=== PATIENT | male | born 1990 | race Caucasian/White ===

== ENCOUNTER 2016-09-26 01:12 | Inpatient (IN) | payer OTHER ==
--- NOTE | ~2016-09-26 | DS ---
Unit #: [id number] #: [id number] Patient: DORA TAVERA [id number] [facility] [address] [place] [address] [id number] MR#: [id number] NAME: DORA TAVERA ROOM: P212 Age: 25 Sex: M Admission Date: 09/26/2016 : 1990 Discharge Date: 09/27/2016 Attending Physician: Gil Montes M.D. Primary Care Physician: Primary Care Physician No DISCHARGE SUMMARY REASON FOR ADMISSION The patient is a 25-year-old single white male with a history of factitious disorder, admitted with recurrent threats of suicide. HOSPITAL COURSE The patient was admitted to the [address] [place] [address] unit and placed on suicide precautions. He was continued on previously prescribed home medications. He requested discharge on 09/27/2016 and it was so ordered. FINAL DIAGNOSES Factitious disorder with psychological symptoms and morbid obesity. DISPOSITION ON DISCHARGE This physician will prescribe no psychotropic or other medications at the time of discharge, given the patient's diagnosis. FOLLOWUP Followup will take place through the auspices of community mental health resources. PROGNOSIS The patient's prognosis is considered fair. Dictated by... Gil Montes M.D. CB/kwasi TD: 09/27/2016 23:50 JOB #: [id number] DISCHARGE SUMMARY X Gil Montes MD X DISCHARGE SUMMARY
--- NOTE | ~2016-09-26 | HP ---
Unit #: [id number] #: [id number] Patient: DORA TAVERA [id number] [place] [address] [id number] I MR#: [id number] NAME: DORA TAVERA ROOM: P212 Age: 25 Sex: M Admission Date: 09/26/2016 : 1990 Attending Physician: Gil Montes M.D. Admitting Physician: Gil Montes M.D. Primary Care Physician: Primary Care Physician No HISTORY AND PHYSICAL HISTORY OF PRESENT ILLNESS The patient is a 25-year-old male, admitted to [address] [place] [address] on 09/26/2016 for suicidal ideations and homicidal ideations. PAST MEDICAL HISTORY Obesity. PAST SURGICAL HISTORY The patient denies. SOCIAL HISTORY He is unemployed. He lives in a shelter house. He chews tobacco but denies alcohol and drug use. FAMILY MEDICAL HISTORY Noncontributory. ALLERGIES Penicillin and Wellbutrin. CURRENT MEDICATIONS The patient is not on any home medications. REVIEW OF SYSTEMS CONSTITUTIONAL: No fever or chills. HEENT: Denies any sore throat, ear pain or runny nose. CARDIOVASCULAR: Denies chest pain, irregular heart rhythm or palpitations. CHEST: Denies shortness of breath or cough. No hemoptysis. GASTROINTESTINAL: Denies nausea, vomiting, diarrhea or chronic constipation. ENDOCRINE: Denies history of increased thirst or urination. No recent significant weight loss or gain. GENITOURINARY: Denies dysuria, frequency, or hematuria. SKIN: Denies any rashes. HEMATOLOGIC: Denies history of increased bleeding or bruising. MUSCULOSKELETAL: Denies any hot, swollen joints. No generalized muscle pain. NEUROLOGIC: Denies problems with vision or speech. No frequent, severe headaches. No numbness, tingling or weakness in any extremities. Denies loss of bladder or bowel control. PHYSICAL EXAMINATION GENERAL: Awake, alert, oriented, and in no acute distress. Unit #: [id number] #: [id number] Patient: DORA TAVERA VITAL SIGNS: Temperature 98.2, heart rate 81, respirations 18, and blood pressure 127/90. HEIGHT: 5 feet 5 inches. WEIGHT: 372 pounds. SKIN: Warm and dry without rash or lesion. HEENT: Normocephalic. TMs not viewed. Oral and nasal passages clear. Conjunctivae clear. PERRLA. EOMs intact. NECK: Supple without lymphadenopathy or thyromegaly. HEART: Regular rate and rhythm without murmur. LUNGS: Clear. ABDOMEN: Soft, nontender. : Not done. EXTREMITIES: No evidence of cyanosis, clubbing or edema. Moves all without focal deficit. NEUROLOGICAL: Grossly within normal limits. Cranial Nerves: II: Visual joseph are intact. III, IV AND : Extraocular movements are intact. Pupils are equal, round and reactive to light. V: Facial sensation is grossly normal. VII: Facial movements and expression are normal. VIII: Auditory acuity grossly intact. IX, X: Uvula is midline. Phonation is normal. XI: Patient shrugs shoulders and turns head normally. XII: Tongue protrudes in the midline. Sensory and Motor Function: Sensory and motor sensation is grossly normal. Motor: moves all extremities well. Coordination: Gait is normal. Deep Tendon Reflexes: Intact. IMPRESSION 1. Psychiatric admission. 2. Morbid obesity. RECOMMENDATIONS Psychiatric, per psychiatrist. MEDICAL I see no contraindications to participating in facility's activities. MEDICAL PROGNOSIS Good. MEDICAL CONDITION Stable. Dictated by... Thania Talavera TD: 09/27/2016 08:20 JOB #: [id number] Unit #: [id number] #: [id number] Patient: DORA TAVERA HISTORY AND PHYSICAL X BRADEN GATICA APRN HISTORY AND PHYSICAL
--- NOTE | ~2016-09-26 | PA ---
Unit #: [id number] #: [id number] Patient: DORA TAVERA [id number] [facility] [address] [place] [address] [id number] I MR#: [id number] NAME: DORA TAVERA ROOM: P212 Age: 25 Sex: M Admission Date: 09/26/2016 : 1990 Date of Assessment: 09/26/2016 Attending Physician: Gil Montes M.D. Admitting Physician: Gil Montes M.D. Primary Care Physician: Primary Care Physician No PSYCHIATRIC ASSESSMENT IDENTIFYING INFORMATION The patient is a 25-year-old white male admitted to the [address] [place] [address] unit after presenting to this facility claiming to be suicidal. INFORMANT(S) The patient and chart. RELIABILITY Good. CHIEF COMPLAINT None given. Dr. Barriga last evaluation has been reviewed extensively. HISTORY OF PRESENT ILLNESS The patient is 25-year-old white male generally cared for at this facility of Dr. Barriga. Dr. Barriga has diagnosed the patient with factitious disorder with primary psychological symptoms, antisocial personality disorder. The patient returns to this facility claiming to be suicidal. He had gone to [facility] to "to attend to a " and while there reports that he had taken up with a female friend who turned out to be treacherous in her relations with the patient leading his return to the [facility] voicing suicidal ideation and reporting significant alcohol cravings. Dr. Barriga's previous reports indicate that the patient's claims of alcohol abuse are less than optimally believable. Whatever the case the patient is today voicing positive suicidal ideation. He denies any homicidal ideation. Current psychotropic medications include venlafaxine, Cogentin, Geodon, Naltrexone and Thorazine. For more complete history of present illness please refer to previous dictated notes. PAST PSYCHIATRIC HISTORY Reviewed no changes. PAST MEDICAL HISTORY Reviewed no changes. MEDICATIONS Effexor, Cogentin, Geodon, naltrexone, Thorazine. ALLERGIES Penicillin, amoxicillin, Wellbutrin. Unit #: [id number] #: [id number] Patient: DORA TAVERA FAMILY HISTORY Noncontributory. SOCIAL HISTORY Reviewed no changes. MENTAL STATUS EXAMINATION At this time reveals the patient to be a morbidly obese white male appearing her stated age. She is in no apparent physical distress at the time of the examination. He is awake, alert and oriented in all spheres. His mood is mildly dysphoric. His affect is blunted. Speech is generally relevant and coherent. There are no gross deficits in memory or cognition noted. Intelligence is judged to be in the low average range based on fund of knowledge. The patient is generally cooperative throughout the interview. He is currently endorsing positive suicidal ideation. He denies homicidal ideation. He denies any psychotic symptoms. His judgment and insight appear to be reasonably intact. ASSETS AND LIABILITIES ASSETS: The patient's assets to be assessed. LIABILITIES: Characterologic pathology. DIAGNOSTIC IMPRESSION 1. Factitious disorder with primary psychological symptoms. 2. Alcohol use disorder per patient history. 3. Antisocial personality traits. 4. Morbid obesity. PSYCHIATRIC PLAN/TREATMENT GOALS The patient remains hospitalized for safety and stabilization. We will continue previously prescribed medications and I will add Campral for the patient's reported "alcohol craving". Suicidal precautions remain in place. ESTIMATED LENGTH OF STAY Three to four days. Dictated by... Gil Montes M.D. DAPHNE/olga TD: 09/26/2016 21:15 JOB #: [id number] Unit #: [id number] #: [id number] Patient: AYSEDORA ARAUJOE PSYCHIATRIC ASSESSMENT X Gil Montes MD X PSYCHIATRIC ASSESSMENT
[2016-09-26 12:49] LABS: BASOPHIL% 0.6 % (0-2.5); EOSINOPHIL# 0.1 X10e3 (0-0.7); EOSINOPHIL% 1.5 % (0.0-7.0); HEMATOCRIT 42.4 % (38.0-50.0); LYMPHOCYTE# 2.5 X10e3 (1.0-3.5); LYMPHOCYTE% 31.2 % (17.0-45.0); MEAN CELL VOLUME 85.9 FL (83-96); MEAN CORPUSCULAR HEMOGLOBIN 28.4 PG (28-34); MEAN CORPUSCULAR HGB CONC 33.1 g/dL (30-36); MEAN PLATELET VOLUME 9.4 FL (6.5-11.5); MONOCYTE# 0.5 X10e3 (0-1.0); MONOCYTE% 6.5 % (3.0-12.0); NEUTROPHIL# 4.9 X10e3 (1.5-7.1); NEUTROPHIL% 60.2 % (40-75); PLATELET COUNT 193 X10e3 (140-420); RED BLOOD COUNT 4.94 X10e (3.90-5.60); RED CELL DISTRIBUTION WIDTH 14.1 % (11.0-15.5); WHITE BLOOD COUNT 8.1 X10e3 (4.0-10.5)
[2016-09-26 12:55] LABS: DIFF IND NO
[2016-09-26 13:27] LABS: ALBUMIN SERUM 3.7 g/dL (3.5-5.0); ALKALINE PHOSPHATASE 93 U/L (32-92); ALT (SGPT) 29 U/L (10-40); AST (SGOT) 25 U/L (10-42); BILIRUBIN,TOTAL 0.8 mg/dL (0.2-2.0); BLOOD UREA NITROGEN 13 mg/dL (9-23); BUN/CREATININE RATIO 18.57; CALCIUM SERUM 8.7 mg/dL (8.4-10.2); CARBON DIOXIDE 26 mmol/L (22-31); CHLORIDE 102 mmol/L (100-111); CREATININE SERUM 0.7 mg/dL (0.6-1.4); GLOM FILT RATE Estimated ABOVE60 mL/min (>60); GLUCOSE FASTING 114 mg/dL (70-110); POTASSIUM 4.1 mmol/L (3.5-5.1); PROTEIN TOTAL SERUM 6.6 g/dL (6.0-8.3); SODIUM 137 mmol/L (135-145)
[2016-09-26 13:33] LABS: THYROID STIMULATING HORMONE 1.49 uIU/ml (0.34-5.60)
[2016-09-26 13:40] LABS: FREE THYROXIN (T4) 0.92 ng/dL (0.58-1.64)
[2016-09-27 13:10] LABS: URINE APPEARANCE CLEAR; URINE BILIRUBIN NEG (NEG); URINE BLOOD NEG (NEG); URINE COLOR YELLOW; URINE GLUCOSE NEG (NEG); URINE KETONE NEG (NEG); URINE LEUKOCYTE ESTERASE NEG (NEG); URINE NITRATE NEG (NEG); URINE PROTEIN NEG (NEG); URINE SPECIFIC GRAVITY 1.016 (1.003-1.035); URINE UROBILINOGEN 0.2 MG/DL (NEG)
[2016-09-27 13:20] LABS: AMPHETAMINE NEG (NEG); BARBITURATES NEG (NEG); BENZODIAZEPINES NEG (NEG); COCAINE NEG (NEG); MARIJUANA NEG (NEG); OPIATES NEG (NEG); TRICYCLIC ANTIDEPRESSANTS NEG (NEG); U METHADONE NEG (NEG)
== END 2016-09-27 14:40 | DRG 880 ==
LOC: P2S 01:12
PROVIDERS: Specialist
DX: F68.11 Factitious disorder imposed on self, with predominantly psychological signs and symptoms (principal); E66.01 Morbid (severe) obesity due to excess calories; R45.851 Suicidal ideations; F10.10 Alcohol abuse, uncomplicated; F60.2 Antisocial personality disorder; R45.850 Homicidal ideations; E66.9 Obesity, unspecified; Z56.0 Unemployment, unspecified; F17.220 Nicotine dependence, chewing tobacco, uncomplicated
CPT/HCPCS: 80053; 80307; 81003; 84439; 84443; 85025

== ENCOUNTER 2016-11-06 23:58 | Emergency (ER) | payer OTHER ==
--- NOTE | ~2016-11-06 | CR127 ---
[facility] A Service of [facility] & [facility] RADIOLOGY TEXT RESULTS PATIENT: DORA TAVERA LOCATION: [facility] : 90 UNIT #: [id number] AGE: [address]: Helene Downey APRN SEX: M ORDER DR: [id number] [facility] [address] [facility]. [place], [place] [address] [id number] MR#: [id number] Acc #: [id number] NAME: DORA TAVERA : 1990 SEX: M STUDY DATE/TIME: 11/07/2016 00:01 UNIT: TX ROOM: STUDY DESCRIPTION: CR Foot Complete Min 3 View Rt Attending Physician: Helene Downey A.P.R.N. Ordering Physician: Helene Downey A.P.R.N. Primary Care Physician: No Primary Care Physician MEDICAL IMAGING REPORT This report is preliminary unless electronic signature is present EXAM Right foot 11/07 at 0001 hours INDICATIONS Foot and ankle pain after twisting injury while walking today. FINDINGS The tarsal, metatarsal, and phalangeal elements are all anatomically normal in position and alignment. There are no articular defects. No fractures or radiopaque foreign bodies in the soft tissues are apparent. IMPRESSION Normal foot. Dictated by... Jacek Morales Jr., M.D. THIS IS AN ELECTRONICALLY VERIFIED REPORT Jacek Morales Jr., M.D. at 11/07/2016 5:24 AM SHAYY/carter TD: 11/07/2016 04:41 JOB #: [id number] MEDICAL IMAGING REPORT Page 1 of 1 COPY
--- NOTE | ~2016-11-06 | CR21 ---
[facility] A Service of [facility] RADIOLOGY TEXT RESULTS PATIENT: DORA TAVERA LOCATION: [facility] : 90 UNIT #: [id number] AGE: [address]: Helene Downey APRN SEX: M ORDER DR: [id number] [facility] [address] [facility]. [place], [place] [address] [id number] MR#: [id number] Acc #: [id number] NAME: DORA TAVERA : 1990 SEX: M STUDY DATE/TIME: 11/07/2016 00:01 UNIT: CFTX ROOM: STUDY DESCRIPTION: CR Ankle Min 3 Views Rt Attending Physician: Helene Downey A.P.R.N. Ordering Physician: Helene Downey A.P.R.N. Primary Care Physician: No Primary Care Physician MEDICAL IMAGING REPORT This report is preliminary unless electronic signature is present EXAM Right ankle 11/07 at 0001 hours INDICATIONS Ankle pain after twisting injury while walking today. FINDINGS AP, lateral, and oblique projections of the ankle show satisfactory integrity of the joint mortise with a smooth articular surface. There is no identifiable fracture, dislocation, or radiopaque foreign body. IMPRESSION Normal ankle. Dictated by... Jacek Morales Jr., M.D. THIS IS AN ELECTRONICALLY VERIFIED REPORT Jacek Morales Jr., M.D. at 11/07/2016 5:24 AM SHAYY/carter TD: 11/07/2016 04:37 JOB #: [id number] MEDICAL IMAGING REPORT Page 1 of 1 COPY
== END 2016-11-07 00:50 | disposition home or self-care (01) ==
LOC: CFTX 23:58
DX: Z88.0 Allergy status to penicillin (principal); S93.401A Sprain of unspecified ligament of right ankle, initial encounter; X58.XXXA Exposure to other specified factors, initial encounter; Y92.69 Other specified industrial and construction area as the place of occurrence of the external cause
CPT/HCPCS: 29515; 73610; 73630; 96372; 99283; J1885

== ENCOUNTER 2017-02-11 02:00 | Inpatient (IN) | payer OTHER ==
[~2017-02-11] VITALS: Ht 165 cm; Wt 168.7 kg
--- NOTE | ~2017-02-11 | DS ---
Unit #: [id number] #: [id number] Patient: BENJI TAVERA [id number] [place] [address] [id number] I MR#: [id number] NAME: BENJI TAVERA ROOM: P208 Age: 26 Sex: M Admission Date: 02/11/2017 : 1990 Discharge Date: 02/13/2017 Attending Physician: Sacha Barriga M.D. 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 He was admitted for stabilization. DIAGNOSTIC STUDIES LABORATORY RESULTS: Please see hospital chart. HOSPITAL COURSE Benji was admitted and placed on suicide precautions. Effexor was changed to Prozac 20 mg daily for depression with Remeron 30 mg at bedtime for depression continued and ReVia 50 mg at bedtime for alcohol dependence. Sukhwinder participated appropriately in unit groups and activities, but due to a chaotic milieu on [address] [place] [address], he was transferred to [address] [place] [address] for further access to chemical dependence groups, which was effective. The patient's depression resolved and he showed no signs of psychosis throughout the hospitalization. He was discharged in stable condition. DISCHARGE DIAGNOSES AXIS I: Major depressive disorder. AXIS II: Antisocial personality disorder. AXIS III: Morbid obesity. AXIS IV: AXIS V: DISCHARGE INSTRUCTIONS [facility] DISCHARGE MEDICATIONS Prozac 20 mg daily for depression, Remeron 30 mg at bedtime for depression, and ReVia 50 mg daily for alcohol dependence. CONDITION AT DISCHARGE Improved. PROGNOSIS Fair. DIET AND ACTIVITY Unit #: [id number] #: [id number] Patient: BENJI TAVERA Per primary care doctor. Dictated by... Sacha Barriga M.D. MRH/modl TD: 02/13/2017 23:53 JOB #: [id number] DISCHARGE SUMMARY Page 1 of 1 X Sacha Barriga MD DISCHARGE SUMMARY
--- NOTE | ~2017-02-11 | PA ---
Unit #: [id number] #: [id number] Patient: BENJI TAVERA [id number] [place] [address] [id number] I MR#: [id number] NAME: BENJI TAVERA ROOM: P208 Age: 26 Sex: M Admission Date: 02/11/2017 : 1990 Date of Assessment: Attending Physician: Sacha Barriga M.D. Admitting Physician: Sacha Barriga M.D. Primary Care Physician: Primary Care Physician No PSYCHIATRIC ASSESSMENT DATE OF ASSESSMENT 02/11/2017. INFORMANTS The patient reliable; OLOP, reliable. CHIEF COMPLAINT Suicidal ideation. HISTORY OF PRESENT ILLNESS Benji Tavera is a 26-year-old man with multiple admissions to our facility, who reports that he was overwhelmed on his temporary job and had increasing hopelessness, helplessness, and vague auditory hallucinations telling him to kill himself. 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 He had been erratically compliant with previous psychiatric medications. He was admitted for stabilization. PAST PSYCHIATRIC HISTORY Multiple admissions to our facility for mood disorder and erratic compliance with outpatient care. FAMILY PSYCHIATRIC HISTORY None reported. 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 He has been staying at a pen[facility] with friends. PAST MEDICAL HISTORY Morbid obesity. MEDICATIONS None currently. ALLERGIES Amoxicillin and penicillin. SUBSTANCE USE HISTORY None reported. MENTAL STATUS EXAMINATION Benji presented as a mildly disheveled man who appeared his stated age. Unit #: [id number] #: [id number] Patient: BENJI TAVERA He was cooperative with the examination. His speech was spontaneous and easily understood. Musculoskeletal examination was calm. His mood was depressed and irritable with a congruent affect. He was alert and fully oriented. Memory and concentration were fair. Thought processes were goal directed with no psychosis. He did report auditory hallucinations prior to admission, but denied these now. He reported ongoing suicidal ideation with a plan to cut himself and could not contract for safety. Insight and judgment, fair. Fund of knowledge and abstraction, fair. ASSETS AND LIABILITIES The patient is employed and is voluntary for treatment. Liabilities include erratic compliance and poor coping skills. ADMITTING DIAGNOSES AXIS I: Major depression. AXIS II: Antisocial personality disorder. AXIS III: Morbid obesity. AXIS IV: AXIS V: PSYCHIATRIC PLAN The patient was admitted and placed on suicide precautions. We will discontinue Effexor due to lack of benefit and add Prozac 20 mg daily, continuing Remeron 30 mg at bedtime, and ReVia 50 mg at bedtime. The patient will enroll in psychotherapy groups and activities, and physical examination and laboratory studies will be ordered and reviewed. TREATMENT GOALS Resolution of SI, improvement in insight, and improvement in coping skills. DISCHARGE PLANNING Follow up with [facility]. ESTIMATED LENGTH OF STAY 5 days. Dictated by... Sacha Barriga M.D. LUPE/kwasi TD: 02/12/2017 04:50 JOB #: [id number] PSYCHIATRIC ASSESSMENT Page 1 of 1 X Sacha Barriga MD X PSYCHIATRIC ASSESSMENT
--- NOTE | ~2017-02-11 | HP ---
Unit #: [id number] #: [id number] Patient: BENJI TAVERA [id number] [place] [address] [id number] I MR#: [id number] NAME: BENJI TAVERA ROOM: P116 Age: 26 Sex: M Admission Date: 02/11/2017 : 1990 Attending Physician: Sacha Barriga M.D. Admitting Physician: Sacha Barriga M.D. Primary Care Physician: Primary Care Physician No HISTORY AND PHYSICAL HISTORY OF PRESENT ILLNESS Benji is a 26 year old admitted to [address] [place] [address] with depression and verbalizing wanting to hurt himself. He has had numerous admissions to this facility. PAST MEDICAL HISTORY Morbid obesity. PAST SURGICAL HISTORY Nothing reported. ALLERGIES Penicillin. SOCIAL HISTORY He denies cigarettes, alcohol and illicit drug use. FAMILY HISTORY Medically noncontributory. REVIEW OF SYSTEMS CONSTITUTIONAL: No fever or chills. HEENT: Denies any sore throat, ear pain or runny nose. CARDIOVASCULAR: Denies chest pain, irregular heart rhythm or palpitations. CHEST: Denies shortness of breath or cough. No hemoptysis. GASTROINTESTINAL: Denies nausea, vomiting, diarrhea or chronic constipation. ENDOCRINE: Denies history of increased thirst or urination. No recent significant weight loss or gain. GENITOURINARY: Denies dysuria, frequency, or hematuria. SKIN: Denies any rashes. HEMATOLOGIC: Denies history of increased bleeding or bruising. MUSCULOSKELETAL: Denies any hot, swollen joints. No generalized muscle pain. NEUROLOGIC: Denies problems with vision or speech. No frequent, severe headaches. No numbness, tingling or weakness in any extremities. Denies loss of bladder or bowel control. CURRENT MEDICATIONS 1. Prozac 20 mg daily. 2. ReVia 50 mg q.h.s. 3. Remeron 30 mg q.h.s. 4. Nicotine patch 21 mg daily. Unit #: [id number] #: [id number] Patient: BENJI TAVERA 5. Milk of Magnesia p.r.n. 6. Maalox p.r.n. 7. Tylenol p.r.n. PHYSICAL EXAMINATION GENERAL: Alert, morbidly obese, in no apparent distress. VITAL SIGNS: Blood pressure 120/82, heart rate 80, respirations 16, temperature 98.6. WEIGHT: 372. HEIGHT: 5 feet 5 inches. SKIN: Warm and dry without rash or lesion. HEENT: Normocephalic. TMs not viewed. Oral and nasal passages clear. Conjunctivae clear. PERRLA. EOMs intact. NECK: Supple without lymphadenopathy or thyromegaly. HEART: Regular rate and rhythm without murmur. LUNGS: Clear. ABDOMEN: Soft, nontender. : Not done. EXTREMITIES: No evidence of cyanosis, clubbing or edema. Moves all without focal deficit. NEUROLOGICAL: Grossly within normal limits. Cranial Nerves: II: Visual joseph are intact. III, IV AND : Extraocular movements are intact. Pupils are equal, round and reactive to light. V: Facial sensation is grossly normal. VII: Facial movements and expression are normal. VIII: Auditory acuity grossly intact. IX, X: Uvula is midline. Phonation is normal. XI: Patient shrugs shoulders and turns head normally. XII: Tongue protrudes in the midline. Sensory and Motor Function: Sensory and motor sensation is grossly normal. Motor: moves all extremities well. Coordination: Gait is normal. Deep Tendon Reflexes: Intact. IMPRESSION Psychiatric admission. RECOMMENDATIONS PSYCHIATRIC: Per psychiatrist. MEDICAL: See no contraindication to participate in facility's activities. MEDICAL PROGNOSIS Good. MEDICAL CONDITION Stable. Dictated by... Helene Montoya P.A.-C. for Varun Wilks/shayy TD: 02/11/2017 23:17 JOB #: [id number] Unit #: [id number] #: [id number] Patient: BENJI TAVERA HISTORY AND PHYSICAL Page 1 of 1 X Helene Montoya HISTORY AND PHYSICAL
[2017-02-11 10:30] LABS: BASOPHIL% 0.4 % (0-2.5); EOSINOPHIL# 0.1 X10e3 (0-0.7); EOSINOPHIL% 1.4 % (0.0-7.0); HEMATOCRIT 44.9 % (38.0-50.0); HEMOGLOBIN 14.8 gm/dL (13.0-16.0); LYMPHOCYTE# 2.5 X10e3 (1.0-3.5); LYMPHOCYTE% 25.3 % (17.0-45.0); MEAN CELL VOLUME 87.1 FL (83-96); MEAN CORPUSCULAR HEMOGLOBIN 28.7 PG (28-34); MEAN PLATELET VOLUME 9.2 FL (6.5-11.5); MONOCYTE# 0.7 X10e3 (0-1.0); MONOCYTE% 6.6 % (3.0-12.0); NEUTROPHIL# 6.6 X10e3 (1.5-7.1); NEUTROPHIL% 66.3 % (40-75); PLATELET COUNT 206 X10e3 (140-420); RED BLOOD COUNT 5.16 X10e (3.90-5.60); RED CELL DISTRIBUTION WIDTH 13.5 % (11.0-15.5); WHITE BLOOD COUNT 9.9 X10e3 (4.0-10.5)
[2017-02-11 10:34] LABS: ALBUMIN SERUM 3.5 g/dL (3.5-5.0); BILIRUBIN,TOTAL 0.7 mg/dL (0.2-2.0); BUN/CREATININE RATIO 18.75; CALCIUM SERUM 8.7 mg/dL (8.4-10.2); CREATININE SERUM 0.8 mg/dL (0.6-1.4); GLOM FILT RATE Estimated 123.3 mL/min (>60); POTASSIUM 4.3 mmol/L (3.5-5.1); PROTEIN TOTAL SERUM 6.1 g/dL (6.0-8.3)
[2017-02-11 10:39] LABS: DIFF IND NO
== END 2017-02-13 11:30 | disposition home or self-care (01) | DRG 881 ==
LOC: P1S 04:09 → P2S 02-12 12:24
PROVIDERS: Psychiatry & Neurology Psychiatry
DX: F32.9 Major depressive disorder, single episode, unspecified (principal); Z68.44 Body mass index [BMI] 60.0-69.9, adult; E66.01 Morbid (severe) obesity due to excess calories; F60.2 Antisocial personality disorder; Z88.0 Allergy status to penicillin
CPT/HCPCS: 80053; 85025

== ENCOUNTER 2017-02-16 14:16 | Inpatient (IN) | payer OTHER ==
[~2017-02-16] VITALS: Ht 165.1 cm; Wt 165.1 kg
--- NOTE | ~2017-02-16 | HP ---
Unit #: [id number] #: [id number] Patient: BENJI TAVERA [id number] [place] [address] [id number] I MR#: [id number] NAME: BENJI TAVERA ROOM: P113 Age: 26 Sex: M Admission Date: 02/16/2017 : 1990 Attending Physician: Sacha Barriga M.D. Admitting Physician: Sacha Barriga M.D. Primary Care Physician: Primary Care Physician No HISTORY AND PHYSICAL Benji is a 26-year-old male admitted on 02/16/[address] [place] [address] for depression and suicidal ideation. He was recently admitted for the same on 02/11/2017. Reviewed the history and physical from that admission and there are no changes. Dictated by... Thania Heredia/shayy TD: 02/17/2017 23:07 JOB #: [id number] HISTORY AND PHYSICAL Page 1 of 1 X WING FONTENOT APRN HISTORY AND PHYSICAL
--- NOTE | ~2017-02-16 | PA ---
Unit #: [id number] #: [id number] Patient: BENJI TAVERA [id number] [facility] [address] [place] [address] [id number] MR#: [id number] NAME: BENJI TAVERA ROOM: P113 Age: 26 Sex: M Admission Date: 02/16/2017 : 1990 Date of Assessment: 02/17/2017 Attending Physician: Sacha Barriga M.D. Admitting Physician: Sacha Barriga M.D. Primary Care Physician: Primary Care Physician No PSYCHIATRIC ASSESSMENT INFORMANTS Patient reliable; OLOP, reliable. CHIEF COMPLAINT "my medicines are not working". HISTORY OF PRESENT ILLNESS Benji is a 26-year-old man, who recently discharged from this facility and with a history of multiple admissions for depression. He also has a history of alcohol abuse, but no dependence. He reported increasing dysphoria and hopelessness with suicidal ideation. He was unwilling to contract for safety and was admitted for stabilization. PAST PSYCHIATRIC HISTORY As noted, the patient was just discharged from this facility about 4 or 5 days ago on Prozac, Remeron, and ReVia. He reported compliance with these medications. FAMILY PSYCHIATRIC HISTORY Please see previous assessments. SOCIAL HISTORY The patient is temporarily homeless and is living in a chcf house in the [place] area. He has a history of traveling between [place] and [place] and history of episodic homelessness. He is single with no children and minimal psychosocial support. PAST MEDICAL HISTORY Significant for obesity. MEDICATIONS Please see MAR. ALLERGIES No known medication allergies. SUBSTANCE USE HISTORY As noted, the patient has a history of alcohol abuse, but no dependence. MENTAL STATUS EXAMINATION Benji presented as an obese man, who appeared his stated age. He was generally cooperative with the examination. His speech was spontaneous and easily understood. His musculoskeletal examination was calm. His Unit #: [id number] #: [id number] Patient: BENJI TAVERA mood was depressed with a decreased range of affect. He was alert and fully oriented. His memory and concentration were intact. His thought processes were logical with no active psychosis. He reported suicidal ideation with multiple plans and would not contract for safety outside of the hospital. Insight and judgment were fair. Fund of knowledge and abstraction were fair. ASSETS AND LIABILITIES The patient knows local resources and has medical insurance and presents voluntarily for treatment. Liabilities include erratic compliance, and lack of success with current treatment plan. He is also erratically homeless with minimal psychosocial support. ADMITTING DIAGNOSES AXIS I: Major depression, recurrent, F33.2. AXIS II: No diagnosis. AXIS III: Obesity. AXIS IV: AXIS V: PSYCHIATRIC PLAN Benji was admitted and placed on suicide precautions. Remeron 30 mg at bedtime and ReVia 50 mg at bedtime will be continued and we will increase Prozac to 40 mg daily. He will enroll in psychotherapy groups, and activities. Physical examination and laboratory studies will be ordered and reviewed. TREATMENT GOALS Resolution of SI, improvement in insight, and improvement in coping skills. DISCHARGE PLANNING Follow up with Zunilda Juarez. ESTIMATED LENGTH OF STAY 5 days. Dictated by... Sacha Barriga M.D. LUPE/kwasi TD: 02/19/2017 03:18 JOB #: [id number] PSYCHIATRIC ASSESSMENT Page 1 of 1 X Sacha Barriga MD X PSYCHIATRIC ASSESSMENT
== END 2017-02-18 18:28 | disposition home or self-care (01) | DRG 885 ==
LOC: P1S 17:39
DX: F33.2 Major depressive disorder, recurrent severe without psychotic features (principal); E66.9 Obesity, unspecified; Z59.0 Homelessness

== ENCOUNTER 2017-02-25 15:00 | Observation (INO) | payer OTHER ==
[~2017-02-25] VITALS: Ht 165.1 cm; Wt 119.3 kg
--- NOTE | ~2017-02-25 | HP ---
Unit #: [id number] #: [id number] Patient: DORA TAVERA [id number] [address] [place], [place] [address] [id number] I MR#: [id number] NAME: DORA TAVERA ROOM: 330 Age: 26 Sex: M Admission Date: 02/25/2017 : 1990 Attending Physician: Durga Bean M.D. Primary Care Physician: No Primary Care Physician HISTORY AND PHYSICAL CHIEF COMPLAINT Overdose. HISTORY OF PRESENT ILLNESS The patient is a 26-year-old male with history of a morbid obesity and major depressive disorder and antisocial personality disorder, presented to the emergency room from the [facility]ero with a suicidal attempt. The patient took 100 Effexor pills and snorted meth and heroin in an attempt to kill himself. The patient took these pills and substance today at around 1:00 p.m. The patient took the bus and went to [facility] shima [facility]. The patient was complaining of a chest pain and was sent here for further evaluation. The patient had a contact with poison control and recommended 24-hour observation with activated charcoal and GoLYTELY. The patient complains of feeling of helplessness and on and off chest pain. PAST MEDICAL HISTORY History of a major depressive disorder, antisocial personality disorder, morbid obesity. PAST SURGICAL HISTORY None. HOME MEDICATION Effexor. ALLERGIES Penicillin and bupropion. SOCIAL HISTORY Denies smoking, denies alcohol abuse. FAMILY HISTORY Reviewed and none. REVIEW OF SYMPTOMS Unable to obtain as the patient is not cooperative with the review of symptoms. The patient is more upset and depressed. PHYSICAL EXAMINATION GENERAL APPEARANCE: On examination patient is lying on a bed, not in acute distress. VITAL SIGNS: Temperature 97.2, pulse 64, respiratory rate 18, blood pressure 115/64, sating 87% at room air. Unit #: [id number] #: [id number] Patient: DORA TAVERA HEENT: Head atraumatic and normocephalic. Pupils equal, round and reacting to light and accommodation. Extraocular movements are intact. NECK: Supple. LUNGS: Decreased air entry at the bases. HEART: Regular rate and rhythm. ABDOMEN: Soft, positive bowel sounds. EXTREMITIES: No cyanosis. No clubbing. NEUROLOGIC: Awake, alert and oriented. No gross focal motor deficit. DIAGNOSTIC STUDIES LABORATORY DATA: Troponin less than 0.05 and urine tox is positive for benzodiazepines and WBC 8.5, hemoglobin 14.6, hematocrit 42.9, platelet 215 and sodium 138, potassium 4.2, chloride 102, bicarb 29, glucose 100, BUN 10, creatinine 0.8 and AST 30, ALT is 37, alkaline phosphatase 93, albumin 3.7, acetaminophen less than 10, salicylate less than 4, alcohol less than 5. ASSESSMENT 1. Effexor overdose. 2. Suicidal attempt. 3. Major depressive disorder. PLAN Plan to admit the patient for a 72-hour hold as of 2:16 p.m. on 02/25/2017. Patient received the GoLYTELY and the activated charcoal. Patient will have a psych consult and monitor the LFTs and repeat the labs and the patient will have a psych evaluation and further recommendations will follow. Dictated by Varun Pearson/renu TD: 02/25/2017 22:40 JOB #: [id number] HISTORY AND PHYSICAL Page 1 of 1 X DURGA BEAN MD X HISTORY AND PHYSICAL
--- NOTE | ~2017-02-25 | CO ---
Unit #: [id number] #: [id number] Patient: BENJI TAVERA [id number] [facility] [address] [facility]. [place], [place] [address] [id number] I MR#: [id number] NAME: BENJI TAVERA ROOM: 330 Age: 26 Sex: M Admission Date: 02/25/2017 : 1990 Attending Physician: Sheri Bean M.D. Consultation Date: 02/26/2017 CONSULTATION REPORT REASON FOR CONSULTATION Depression, overdose, suicidal ideation. HISTORY OF PRESENT ILLNESS Mr. Benji Tavera is a 26-year-old morbidly obese male, seen in room 330, bed 1 on 02/26/2017 at [facility]. The patient dressed in hospital attire, lying comfortably in bed. The patient reported multiple admission at [facility] in the last year as well as this year. The patient admitted taking an overdose medication. The patient reports still suicidal. The patient has a sitter, able to answer questions appropriately. The patient reported he took 100 Effexor pills and snorted meth and heroin. The patient reports that he attempt to kill himself. The patient denied any psychotic symptom. PAST PSYCHIATRIC HISTORY Remarkable for history of multiple admission at [facility] for similar complaints and history of suicide attempts. MEDICAL HISTORY Remarkable for morbid obesity. MEDICATION HISTORY The patient is currently on no medications. FAMILY HISTORY AND SOCIAL HISTORY The patient reports that he has a good support system. No history of abuse. History of substance abuse as mentioned above. The patient's urine drug screen was positive for benzodiazepine. REVIEW OF SYSTEMS Complete review of systems is unremarkable except as mentioned above. MENTAL STATUS EXAMINATION The patient's vital signs; temperature 98.8, pulse 110, respirations 18, blood pressure 146/102, oxygen saturation 98%. General appearance; the patient moderately obese, dressed casually. The patient has a sitter, pleasant and cooperative during interview. Attention span and concentration, fair. Speech, regular rate and coherent. Oriented in time, place, and person. Mood and affect, sad, dysphoric, and labile mood. Thought process, coherent. Thought content, the patient denied any homicidal ideation or any hallucination, but reported suicidal ideation. Recent suicide attempt. Recent and remote memory, fair. Language, intact. Fund of knowledge, fair. Insight and judgment, fair to slightly impaired. Unit #: [id number] #: [id number] Patient: BENJI TAVERA DIAGNOSES Psychiatric: Major depressive disorder, recurrent, severe, F33.2. Secondary diagnosis: Deferred. Medical diagnosis: Morbid obesity. Stressors: Psychosocial stressors. PSYCHIATRIC PLAN AND TREATMENT GOAL AND DISCHARGE PLAN 1. Supportive psychotherapy and psychoeducation provided to the patient. 2. Educated about benefits and side effects of medication and course and prognosis of illness. 3. Advised no medication, but advised to transfer the patient to [facility] for psychiatric stabilization. We will continue to follow. Please feel free to call if any questions telephone #[phone]. Dictated by... Varun Reynoso/kwasi TD: 02/26/2017 20:09 JOB #: [id number] CONSULTATION REPORT Page 1 of 1 X Ruben Krishnamurthy MD X CONSULTATION REPORT
--- NOTE | ~2017-02-25 | DS ---
Unit #: [id number] #: [id number] Patient: DORA TAVERA [id number] [address] [place], [place] [address] [id number] I MR#: [id number] NAME: DORA TAVERA ROOM: 330 Age: 26 Sex: M Admission Date: 02/25/2017 : 1990 Discharge Date: 02/26/2017 Attending Physician: Sheri Bean M.D. Primary Care Physician: No Primary Care Physician DISCHARGE SUMMARY REASON FOR ADMISSION Overdose. HISTORY OF PRESENT ILLNESS/HOSPITAL COURSE The patient is a 26-year-old male with prior history of morbid obesity, major depressive disorder, antisocial personality disorder, paranoia. Presented to ER secondary to drug overdose. Please refer to H and P for complete details. Through hospital course, he was placed on telemetry floor and underwent routine laboratory studies. No acute abnormalities were found. On day of February 26, 2017, the patient was alert and oriented x3. His laboratory studies reverted back to normal. Consultation was placed to Dr. Krishnamurthy who recommended transfer to [facility] for further evaluation. Thus, patient was transferred for ongoing care. FINAL DISCHARGE DIAGNOSES 1. Drug overdose. 2. Suicidal ideation. 3. Major depressive disorder. 4. Severe morbid obesity. Dictated by... Varun Wilks/leonor TD: 02/27/2017 09:05 JOB #: [id number] DISCHARGE SUMMARY Page 1 of 1 X Hussein Lopez MD X DISCHARGE SUMMARY
--- NOTE | ~2017-02-25 | BMI ---
[facility] Nutrition Therapy DATE: 02/26/17 Patient: DORA SHUKLA AYSE Physician: RYAN Address: [address] [facility] Room/Bed: [address] [place] [address], Zip: [place] [address] Admit Date: 02/25/17 Date of : [birth year] Height: 5 5 Weight: 263 119.29 HIGH BMI NOTE: DX: PATIENT ADMITTED FOR OVERDOSE AND SI ANTHROPOMETRICS: HT: 65", WT: 263#, BMI: 43.8 DIET: HEART HEALTHY RECOMMENDATIONS: CONTINUE HEART HEALTHY DIET TO PROMOTE A STEADY WEIGHT LOSS TOWARDS A HEALTHY BMI OF 19-25. Respectfully, SHAQUILLE SALDANA, ALBER, LD [employer] [facility] cc: client file
--- NOTE | ~2017-02-25 | EKG ---
PATIENT: DORA TAVERA UNIT #: [id number] Ventricular Rate: 65 BPM Atrial Rate: 65 BPM P-R Interval: 138 ms QRS Duration: 88 ms Q-T Interval: 406 ms QTC Calculation(Bezet): 422 ms P [place]: 5 degrees Calculated R [place]: 7 degrees Calculated T [place]: 28 degrees Diagnosis Line: Normal sinus rhythm Diagnosis Line: Normal ECG Diagnosis Line: No previous ECGs available Diagnosis Line: Confirmed by LATANYA CAIN MD ([id number]) on Diagnosis Line: 02/25/2017 4:11:34 PM INTERPRETING MD: PAYTON ARAUZ
[2017-02-25 16:06] LABS: AMPHETAMINE NEG (NEG); BARBITURATES NEG (NEG); BENZODIAZEPINES POS (NEG); COCAINE NEG (NEG); MARIJUANA NEG (NEG); OPIATES NEG (NEG); TRICYCLIC ANTIDEPRESSANTS NEG (NEG); U METHADONE NEG (NEG)
[2017-02-25 16:06] LABS: POC - CKMB 1.1 ng/mL (0.0-7.9); POC - TROPONIN <0.05 ng/mL (<=0.05)
[2017-02-25 16:07] LABS: BASOPHIL% 0.5 % (0-2.5); EOSINOPHIL# 0.1 X10e3 (0-0.7); EOSINOPHIL% 1.4 % (0.0-7.0); HEMATOCRIT 42.9 % (38.0-50.0); HEMOGLOBIN 14.6 gm/dL (13.0-16.0); LYMPHOCYTE# 2.2 X10e3 (1.0-3.5); LYMPHOCYTE% 25.6 % (17.0-45.0); MEAN CELL VOLUME 86.1 FL (83-96); MEAN CORPUSCULAR HEMOGLOBIN 29.2 PG (28-34); MEAN PLATELET VOLUME 8.8 FL (6.5-11.5); MONOCYTE# 0.6 X10e3 (0-1.0); MONOCYTE% 6.6 % (3.0-12.0); NEUTROPHIL# 5.6 X10e3 (1.5-7.1); NEUTROPHIL% 65.9 % (40-75); PLATELET COUNT 215 X10e3 (140-420); RED BLOOD COUNT 4.98 X10e (3.90-5.60); RED CELL DISTRIBUTION WIDTH 13.6 % (11.0-15.5); WHITE BLOOD COUNT 8.5 X10e3 (4.0-10.5)
[2017-02-25 16:08] LABS: DIFF IND NO
[2017-02-25 16:22] LABS: ACETAMINOPHEN <10 ug/mL; ALBUMIN SERUM 3.7 g/dL (3.5-5.0); ALCOHOL BLOOD <5 mg/dL ([, 0]); ALKALINE PHOSPHATASE 93 U/L (32-92); ALT (SGPT) 37 U/L (10-40); AST (SGOT) 30 U/L (10-42); BILIRUBIN, DIRECT 0.1 mg/dL (0.0-0.2); BILIRUBIN,INDIRECT 0.5 mg/dL (0.0-0.9); BILIRUBIN,TOTAL 0.6 mg/dL (0.2-2.0); BLOOD UREA NITROGEN 10 mg/dL (9-23); CALCIUM SERUM 8.8 mg/dL (8.4-10.2); CARBON DIOXIDE 29 mmol/L (22-31); CHLORIDE 102 mmol/L (100-111); CREATININE SERUM 0.8 mg/dL (0.6-1.4); GLOM FILT RATE Estimated 123.3 mL/min (>60); GLUCOSE FASTING 100 mg/dL (70-110); POTASSIUM 4.2 mmol/L (3.5-5.1); PROTEIN TOTAL SERUM 6.7 g/dL (6.0-8.3); SALICYLATE <4.0 mg/dL; SODIUM 138 mmol/L (135-145)
[2017-02-25] MEDS ORDERED: NO MEDICATIONS (16:35)
[2017-02-25] MEDS ORDERED: BUSPAR15 M1 PO (19:50)
[2017-02-25] MEDS ORDERED: SEROQUEL100 MG PO (19:51)
[2017-02-25] MEDS ORDERED: THORAZINE50 MG PO (19:52)
[2017-02-25] MEDS ORDERED: COGENTIN0.5 M1 PO (19:52)
[2017-02-25] MEDS ORDERED: LEXAPRO PO (19:53)
[2017-02-25] MEDS ORDERED: LAMICTAL25 MG PO (19:54)
[2017-02-25] MEDS ORDERED: NEURONTIN PO (19:55)
[2017-02-26 06:21] LABS: HEMATOCRIT 41.1 % (38.0-50.0); HEMOGLOBIN 13.9 gm/dL (13.0-16.0); MEAN CELL VOLUME 86.4 FL (83-96); MEAN CORPUSCULAR HEMOGLOBIN 29.2 PG (28-34); MEAN CORPUSCULAR HGB CONC 33.8 g/dL (30-36); MEAN PLATELET VOLUME 8.8 FL (6.5-11.5); RED BLOOD COUNT 4.76 X10e (3.90-5.60); RED CELL DISTRIBUTION WIDTH 13.3 % (11.0-15.5); WHITE BLOOD COUNT 7.3 X10e3 (4.0-10.5)
[2017-02-26 06:45] LABS: BUN/CREATININE RATIO 13.75; CALCIUM SERUM 8.6 mg/dL (8.4-10.2); CREATININE SERUM 0.8 mg/dL (0.6-1.4); GLOM FILT RATE Estimated 123.3 mL/min (>60); POTASSIUM 3.7 mmol/L (3.5-5.1)
== END 2017-02-26 19:53 ==
LOC: CED 15:00 → CEDOF 18:00 → CED 18:43 → C3A PCU 20:21 → CEDOF 20:21 → C3A PCU 20:21
PROVIDERS: Emergency Medicine; Internal Medicine
DX: T43.212A Poisoning by selective serotonin and norepinephrine reuptake inhibitors, intentional self-harm, initial encounter (principal); F33.2 Major depressive disorder, recurrent severe without psychotic features; E66.01 Morbid (severe) obesity due to excess calories; F60.2 Antisocial personality disorder
CPT/HCPCS: 80048; 80076; 80307; 82553; 84484; 85025; 85027; 93005; 94760; 99285; G0378; G0480

== ENCOUNTER 2017-02-26 15:00 | Inpatient (IN) | payer OTHER ==
[~2017-02-26] VITALS: Ht 165.1 cm; Wt 165.1 kg
--- NOTE | ~2017-02-26 | PA ---
Unit #: [id number] #: [id number] Patient: DORA TAVERA [id number] [facility] [address] [place] [address] [id number] MR#: [id number] NAME: DORA TAVERA ROOM: P174 Age: 26 Sex: M Admission Date: 02/26/2017 : 1990 Date of Assessment: 02/27/2017 Attending Physician: Ruben Krishnamurthy M.D. Admitting Physician: Ruben Krishnamurthy M.D. Primary Care Physician: Generic Doctor Not In System PSYCHIATRIC ASSESSMENT INFORMANTS The patient reliability, fair informant and chart reliability, good. CHIEF COMPLAINT Depression and suicide attempt. HISTORY OF PRESENT ILLNESS Mr. Leblanc is a 26-year-old male, who has a history of multiple admission at [facility] multiple times in 2015 and in 09/2016 and 01/2017. The patient was last discharged from [facility] on 02/18/2017. The patient was admitted to [facility] after taking an overdose of Effexor. The patient reported that he took 100 Effexor pills, snorted 3 g of heroin in a suicide attempt. The patient was charcoaled in the emergency room. Continues to endorse suicidal ideation, placed on 72-hour hold and a sitter at [facility] and subsequently transferred to [facility] for psychiatric stabilization. The patient reported tobacco use, age of onset 9; alcohol, age of onset 18; marijuana, age of onset 17; crack cocaine, 18; opioid, age of onset 17; and amphetamine, age of onset 16. Longest period of sobriety 5 months, last period of sobriety 12/2016. The patient needing inpatient admission at this time for psychiatric stabilization. PAST PSYCHIATRIC HISTORY Remarkable for history of numerous admission at [facility], last admission recently in January and history of also treatment at [facility]. FAMILY HISTORY AND SOCIAL HISTORY The patient reported history of mental illness and substance abuse in an uncle. The patient reports that he has a poor support system. The patient denied any history of abuse or legal charges. MEDICAL HISTORY Remarkable for morbid obesity. Musculoskeletal; muscle strength and tone, no atrophy or abnormal movement. Gait normal. MEDICATION HISTORY None. ALLERGIES No known drug allergies. SUBSTANCE ABUSE HISTORY Please see above. Unit #: [id number] #: [id number] Patient: DORA TAVERA REVIEW OF SYSTEMS HEENT: Eyes, clear. Ears, nose, mouth, and throat; clear. CARDIOVASCULAR: Unremarkable. RESPIRATORY: Unremarkable. GI: Unremarkable. : Unremarkable. SKIN: Unremarkable. LYMPH NODE: Unremarkable. NEUROLOGIC: Unremarkable. ENDOCRINE: Unremarkable. HEMATOLOGIC: Unremarkable. ALLERGIC/IMMUNOLOGIC: Unremarkable. MUSCULOSKELETAL: Muscle strength and tone, no atrophy or abnormal movement. Gait normal. MENTAL STATUS EXAMINATION VITAL SIGNS: Temperature 97.7, heart rate 61, respiratory rate 20, 98% oxygen saturation, blood pressure 124/87, weight 365 pounds, and height 5 feet 5 inches. GENERAL APPEARANCE: The patient dressed casually. No facial deformity noted. MUSCULOSKELETAL: Please see above. PSYCHIATRIC EXAMINATION Description of speech; regular rate, normal volume, normal articulation, and coherent. Description of thought process, goal directed. Description of association, intact. Description of abnormal psychotic thinking; denied any hallucination or delusions, but suicidal ideation. Reports mood is getting better. Denied any substance abuse as mentioned above. Description of the patient's judgment: Concerning everyday activity, poor. Social situation, poor. Concerning psychiatric condition, poor. Complete mental status examination; oriented in time, place, and person. Recent and remote memory, fair. Attention span and concentration, fair. Language, able to name object and repeat phrases. Fund of knowledge, aware of current event and passive vocabulary intact. Mood and affect, sad and dysphoric. Insight and judgment, fair to poor. ASSETS AND LIABILITIES Assets, the patient is articulate and able to take care of his ADL. Liability, history of depression and suicidal ideation. ADMITTING DIAGNOSES Psychiatric: Major depressive disorder, recurrent, severe, F33.2 and history of opioid abuse, moderate, F15.20. Secondary diagnosis: Deferred. Medical diagnosis: Morbid obesity. Stressors: Psychosocial stressors. PSYCHIATRIC PLAN AND TREATMENT GOAL AND DISCHARGE PLAN 1. Advised to admit the patient on the inpatient unit. Provide safe, supportive, and structured environment. 2. Ordered labs, UA and UDS. 3. Advised to resume Lexapro 10 mg at bedtime, ReVia 50 mg daily, Cogentin 0.5 mg in the morning, Seroquel 100 mg at bedtime, Lamictal 25 mg Unit #: [id number] #: [id number] Patient: DORA TAVERA at bedtime, Thorazine 50 mg at bedtime, and Neurontin 400 mg t.i.d., and BuSpar 15 mg b.i.d. If needed, consider further adjustment of medication. The patient to attend all the programing, group therapy, individual therapy, and structured milieu. TREATMENT GOAL To attain euthymic mood, gain insight into his problem, and learn coping skills. DISCHARGE PLAN Plan to stabilize the patient and consider followup in outpatient program. ESTIMATED LENGTH OF STAY 5 days. Dictated by... Varun Reynoso/kwasi TD: 02/27/2017 15:37 JOB #: [id number] PSYCHIATRIC ASSESSMENT Page 1 of 1 X Ruben Krishnamurthy MD X PSYCHIATRIC ASSESSMENT
--- NOTE | ~2017-02-26 | DS ---
Unit #: [id number] #: [id number] Patient: DORA TAVERA [id number] [place] [address] [id number] I MR#: [id number] NAME: DORA TAVERA ROOM: 74 Age: 26 Sex: M Admission Date: 02/26/2017 : 1990 Discharge Date: 02/28/2017 Attending Physician: Ruben Krishnamurthy M.D. DISCHARGE SUMMARY REASON FOR ADMISSION Depression. DIAGNOSTIC STUDIES LABORATORY RESULTS: Unremarkable. HOSPITAL COURSE The patient was admitted to inpatient unit on 02/26/2017 and discharged on 02/28/2017. The patient was treated on the inpatient unit with group therapy, individual therapy, medication management. The patient was responsive to treatment. Subsequently, the patient was discharged with a plan to follow up in outpatient program. The patient was able to contract for safety. DISCHARGE MEDICATIONS BuSpar 15 mg b.i.d. for anxiety, Thorazine 50 mg at bedtime for psychosis, Cogentin 0.5 mg daily for EPS symptom, Lamictal 25 mg at bedtime for depression, Lexapro 10 mg once daily for depression, Neurontin 400 mg t.i.d. for chronic pain, Seroquel 100 mg at bedtime for psychosis. DISCHARGE DIAGNOSES Psychiatric: Major depressive disorder, recurrent, severe, F33.2; history of opioid abuse, moderate, F15.20. Secondary diagnosis: Deferred. Medical diagnosis: Morbid obesity. Stressors: Psychosocial stressors. DISCHARGE INSTRUCTIONS The patient to follow up in outpatient clinic as per social security assessor. CONDITION ON DISCHARGE The patient was pleasant and cooperative. Denied any psychotic symptom or any suicidal ideation. PROGNOSIS Guarded. DIET AND ACTIVITY As tolerated. Unit #: [id number] #: [id number] Patient: DORA TAVERA Dictated by... Varun Reynoso/evonnel TD: 03/02/2017 04:11 JOB #: [id number] DISCHARGE SUMMARY Page 1 of 1 X Ruben Krishnamurthy MD X DISCHARGE SUMMARY
--- NOTE | ~2017-02-26 | EKG ---
PATIENT: DORA TAVERA UNIT #: [id number] Ventricular Rate: 51 BPM Atrial Rate: 51 BPM P-R Interval: 142 ms QRS Duration: 86 ms Q-T Interval: 428 ms QTC Calculation(Bezet): 394 ms P [place]: 30 degrees Calculated R [place]: 30 degrees Calculated T [place]: 56 degrees Diagnosis Line: Sinus bradycardia Diagnosis Line: Otherwise normal ECG Diagnosis Line: When compared with ECG of 25-FEB-2017 15:27, Diagnosis Line: No significant change was found Diagnosis Line: Confirmed by LATANYA CAIN MD ([id number]) on Diagnosis Line: 03/01/2017 2:00:00 PM INTERPRETING MD: PAYTON ARAUZ
--- NOTE | ~2017-02-26 | HP ---
Unit #: [id number] #: [id number] Patient: DORA TAVERA [id number] [facility] [address] [place] [address] [id number] I MR#: [id number] NAME: DORA TAVERA ROOM: P174 Age: 26 Sex: M Admission Date: 02/26/2017 : 1990 Attending Physician: Ruben Krishnamurthy M.D. Admitting Physician: Ruben Krishnamurthy M.D. Primary Care Physician: Generic Doctor Not In System HISTORY AND PHYSICAL REASON FOR ADMISSION Acute psychiatric inpatient admission/illness. HISTORY OF PRESENT ILLNESS The patient is a 26-year-old male, presents to [facility] secondary to drug overdose, positive suicidal ideation, was medically stabilized and was thus transferred to [facility] for ongoing care. PAST MEDICAL HISTORY Prior history of antisocial personality disorder, paranoia, prior history of suicidal attempts in the past, severe morbid. CURRENT HOME MEDICATIONS Neurontin and Cogentin. SOCIAL HISTORY Positive alcohol, tobacco, marijuana, crack cocaine, opioids, and amphetamines. FAMILY HISTORY Reviewed and noncontributory, not pertinent. REVIEW OF SYSTEMS Please see HPI. Twelve point otherwise negative except for those positive noted in the HPI. PHYSICAL EXAMINATION GENERAL: Awake, alert, oriented to person, place, and time. Well built, well nourished. Does not appear to be in any acute distress. VITAL SIGNS: Temperature 98.4, blood pressure 134/77, respiratory rate 16, pulse 76. HEAD: Atraumatic. Normocephalic. EYES: Bilateral extraocular muscles are normal. Pupils equal, reactive to light and accommodation. Sclerae are normal. No jaundice. NECK: Neck is supple. No neck rigidity. No thyromegaly. No carotid bruit. No JVD. Oral mucosa is moist. CHEST: Bilateral vesicular breathing. Clear to auscultation. No basilar rales. CARDIOVASCULAR: S1 and S2 normal. No murmur, no gallop, no rub. ABDOMEN: Soft, nontender. No organomegaly. Bowel sounds are normal. No hernia, no masses, no rebound, no guarding. EXTREMITIES: No pitting edema. No calf tenderness. Extremity pulses, Unit #: [id number] #: [id number] Patient: DORA TAVERA including dorsalis pedis, have good volume. BACK: Normal spine curvature. No spine tenderness. No costovertebral angle tenderness. FACULTY INSTRUCTOR: Cranial nerves normal bilaterally. Motor function bilaterally symmetric and normal. Sensory system normal. SKIN: Warm and dry. INITIAL IMPRESSION 1. Suicidal ideation. 2. Drug overdose. 3. Severe morbid obesity. PLAN As per psychiatrist, medical condition stable, medical prognosis is fair. There are no medical contraindications to patient participating in activities while here at [facility]. Dictated by... Hussein Lopez M.D. MATILDA/kwasi TD: 02/27/2017 14:22 JOB #: [id number] HISTORY AND PHYSICAL Page 1 of 1 X Hussein Lopez MD X HISTORY AND PHYSICAL
[~2017-02-26 15:00] MED LIST: BUSPAR15 M1 PO; COGENTIN0.5 M1 PO; LAMICTAL25 MG PO; LEXAPRO PO; NEURONTIN PO; NO MEDICATIONS; SEROQUEL100 MG PO; THORAZINE50 MG PO
[2017-02-27 17:15] LABS: AMPHETAMINE NEG (NEG); BARBITURATES NEG (NEG); BENZODIAZEPINES NEG (NEG); COCAINE NEG (NEG); MARIJUANA NEG (NEG); OPIATES NEG (NEG); TRICYCLIC ANTIDEPRESSANTS NEG (NEG); U METHADONE NEG (NEG)
== END 2017-02-28 12:40 | DRG 885 ==
LOC: P1E 20:21 → P2S 20:21 → P1E 02-27 09:32
PROVIDERS: Psychiatry & Neurology Psychiatry
DX: F33.2 Major depressive disorder, recurrent severe without psychotic features (principal); E66.01 Morbid (severe) obesity due to excess calories; R45.851 Suicidal ideations
CPT/HCPCS: 80307; 93005

== ENCOUNTER 2017-03-22 13:11 | Inpatient (IN) | payer OTHER ==
[~2017-03-22] VITALS: Ht 165.1 cm; Wt 171.9 kg
--- NOTE | ~2017-03-22 | HP ---
Unit #: [id number] #: [id number] Patient: BENJI TAVERA [id number] [place] [address] [id number] I MR#: [id number] NAME: BENJI TAVERA ROOM: P121 Age: 26 Sex: M Admission Date: 03/22/2017 : 1990 Attending Physician: Sacha Barriga M.D. Admitting Physician: Sacha Barriga M.D. Primary Care Physician: Primary Care Physician No HISTORY AND PHYSICAL HISTORY OF PRESENT ILLNESS Benji is a 26 year old admitted to [address] [place] [address] with depression verbalizing wanting to hurt himself. The patient was seen and H and P dated 02/27/2017 was reviewed. This is current. No changes. Please see H and P dated 02/27/2017. Dictated by... eHlene Montoya P.A.-C. for Varun Wilks/soham TD: 03/23/2017 15:09 JOB #: [id number] HISTORY AND PHYSICAL Page 1 of 1 X Helene Montoya HISTORY AND PHYSICAL
== END 2017-03-24 13:10 | disposition left against medical advice (07) | DRG 881 ==
LOC: P1S 15:51
DX: F32.9 Major depressive disorder, single episode, unspecified (principal); I10 Essential (primary) hypertension; Z59.0 Homelessness

== ENCOUNTER 2017-03-28 13:51 | Inpatient (IN) | payer OTHER ==
[~2017-03-28] VITALS: Ht 170.2 cm; Wt 180.5 kg
--- NOTE | ~2017-03-28 | DS ---
Unit #: [id number] #: [id number] Patient: DORA TAVERA [id number] [facility] [address] [place] [address] [id number] MR#: [id number] NAME: DORA TAVERA ROOM: 32 Age: 26 Sex: M Admission Date: 03/28/2017 : 1990 Discharge Date: 03/29/2017 Attending Physician: Ruben Krishnamurthy M.D. Primary Care Physician: Primary Care Physician No DISCHARGE SUMMARY REASON FOR ADMISSION Depression. DIAGNOSTIC STUDIES LABORATORY RESULTS: Pending. HOSPITAL COURSE The patient was admitted to inpatient unit. The patient denied any suicidal or homicidal ideation. Denied any psychotic symptom. The patient reports that he has not been compliant with medication. The patient was able to maintain safe behavior and requested for discharge. The patient denied any suicidal or homicidal ideation or psychotic symptom. The patient was subsequently given AMA discharge. DISCHARGE MEDICATIONS None. DISCHARGE DIAGNOSES Psychiatric: Major depressive disorder, recurrent, severe, F33.2. Secondary diagnosis: Deferred. Medical diagnosis: Morbid obesity. Stressors: Psychosocial stressor. DISCHARGE INSTRUCTIONS The patient to follow up in outpatient clinic as per perinatal social worker. CONDITION ON DISCHARGE The patient was pleasant and cooperative. Denied any suicidal or homicidal ideation. Denied any psychotic symptom. PROGNOSIS Guarded. DIET AND ACTIVITY As tolerated. Dictated by... Ruben Krishnamurthy M.D. Unit #: [id number] #: [id number] Patient: DORA TAVERA SZC/modl TD: 03/29/2017 16:52 JOB #: [id number] DISCHARGE SUMMARY Page 1 of 1 X Ruben Krishnamurthy MD X DISCHARGE SUMMARY
--- NOTE | ~2017-03-28 | HP ---
Unit #: [id number] #: [id number] Patient: BENJI TAVERA [id number] [place] [address] [id number] I MR#: [id number] NAME: BENJI TAVERA ROOM: P132 Age: 26 Sex: M Admission Date: 03/28/2017 : 1990 Attending Physician: Ruben Krishnamurthy M.D. Admitting Physician: Ruben Krishnamurthy M.D. Primary Care Physician: Primary Care Physician No HISTORY AND PHYSICAL Benji is a 26 year old admitted to [address] [place] [address] with depression and verbalizing wanting to hurt himself. Patient was seen and H and P dated 02/27/17 was reviewed. This is current. No changes. Please see H and P dated 02/27/17. Dictated by... Helene Montoya P.A.-C. for Varun Wilks/shayy TD: 03/29/2017 16:25 JOB #: [id number] HISTORY AND PHYSICAL Page 1 of 1 X Helene Montoya HISTORY AND PHYSICAL
--- NOTE | ~2017-03-28 | PA ---
Unit #: [id number] #: [id number] Patient: BENJI TAVERA [id number] [facility] [address] [place] [address] [id number] MR#: [id number] NAME: BENJI TAVERA ROOM: P132 Age: 26 Sex: M Admission Date: 03/28/2017 : 1990 Date of Assessment: 03/29/2017 Attending Physician: Ruben Krishnamurthy M.D. Admitting Physician: Ruben Krishnamurthy M.D. Primary Care Physician: Primary Care Physician No PSYCHIATRIC ASSESSMENT INFORMANTS The patient reliability, fair informant and chart reliability, good. CHIEF COMPLAINT Suicidal ideation. HISTORY OF PRESENT ILLNESS Mr. Benji Tavera is a 26-year-old male, well known to us from his previous admission, has a history of multiple treatment, last admission on 03/22/2017. The patient reports the last time when he was here, he left AMA and did not stay on his medication and reported he needed to come in because he was having suicidal ideation. The patient currently denied any suicidal or homicidal ideation. Denied any psychotic symptom. The patient wrote on his paperwork that seeing stuff which are not there, hearing voices, and suicidal and homicidal, but when the patient was interviewed, he denied that. The patient was admitted to inpatient unit for safety. The patient reported using meth and Suboxone. To the brief writer, the patient also reported taking 200 pills of Effexor. The patient, however, denied everything to the brief writer. PAST PSYCHIATRIC HISTORY Remarkable for history of numerous hospitalizations at Our , last admission on 02/27/2017. FAMILY HISTORY AND SOCIAL HISTORY The patient reported a history of mental illness and substance abuse in an uncle. Poor support system. Denied any legal charges. MEDICAL HISTORY Remarkable for morbid obesity. Musculoskeletal; muscle strength and tone, no atrophy or abnormal movement. Gait normal. MEDICATION HISTORY None. ALLERGIES No known drug allergies. SUBSTANCE ABUSE HISTORY Please see above. The patient reported using alcohol, opioids, and synthetic drugs, but the patient's urine drug screen was negative on the last admission, current one is pending. Unit #: [id number] #: [id number] Patient: TAVERA,BENJI VAZQUEZ REVIEW OF SYSTEMS HEENT: Eyes, clear. Ears, nose, mouth, and throat; clear. CARDIOVASCULAR: Unremarkable. RESPIRATORY: Unremarkable. GI: Unremarkable. : Unremarkable. SKIN: Unremarkable. LYMPH NODE: Unremarkable. NEUROLOGIC: Unremarkable. ENDOCRINE: Unremarkable. HEMATOLOGIC: Unremarkable. ALLERGIC/IMMUNOLOGIC: Unremarkable. MUSCULOSKELETAL: Muscle strength and tone, no atrophy or abnormal movement. Gait normal except for morbid obesity. MENTAL STATUS EXAMINATION CONSTITUTIONAL: Measurement of vital signs; temperature 98.2, heart rate 98, respiratory rate 20, and blood pressure 140/101. GENERAL APPEARANCE: The patient morbidly obese. No facial deformity noted. MUSCULOSKELETAL: Please see above. PSYCHIATRIC EXAMINATION Description of speech; slow in volume and rate, spontaneous. Description of thought process, circumstantial. Description of association, intact. Description of abnormal psychotic thinking; the patient denied any hallucination, delusions, or any suicidal or homicidal ideation to the brief writer. Denied any hallucination. Description of the patient's judgment: Concerning everyday activity, poor. Social situation, poor. Concerning psychiatric condition, poor. Complete mental status examination; oriented in time, place, and person. Recent and remote memory, fair. Attention span and concentration, fair. Language, able to name object and repeat phrases. Fund of knowledge, aware of current event and passive vocabulary intact. Mood and affect, sad and dysphoric. Insight and judgment, fair to poor. ASSETS AND LIABILITIES Assets, the patient is articulate and able to take care of his ADL. Liability, history of multiple treatment and failure. ADMITTING DIAGNOSES Psychiatric: Major depressive disorder, recurrent, severe, F33.2. Secondary diagnosis: Deferred. Medical diagnosis: Morbid obesity. Stressors: Psychosocial stressors. PSYCHIATRIC PLAN AND TREATMENT GOAL AND DISCHARGE PLAN 1. Advised to admit the patient on the inpatient unit. Provide safe, supportive, and structured environment. 2. Ordered labs; CBC, CMP, UA, and UDS. 3. Precaution for aggression and self-harm. 4. Advised to resume his previous discharge medication. The patient to attend group therapy, individual therapy, and family session if possible. 5. Treatment goal to attain euthymic mood, gain insight into his problem, Unit #: [id number] #: [id number] Patient: BENJI TAVERA and learn coping skills. DISCHARGE PLAN Plan to stabilize the patient and consider followup in outpatient program. ESTIMATED LENGTH OF STAY 3 to 5 days. Dictated by... Varun Reynoso/kwasi TD: 03/29/2017 17:33 JOB #: [id number] PSYCHIATRIC ASSESSMENT Page 1 of 1 X Ruben Krishnamutrhy MD PSYCHIATRIC ASSESSMENT
== END 2017-03-29 17:27 | disposition home or self-care (01) | DRG 885 ==
LOC: P1S 18:12
DX: F33.2 Major depressive disorder, recurrent severe without psychotic features (principal); E66.01 Morbid (severe) obesity due to excess calories; R45.851 Suicidal ideations; F17.210 Nicotine dependence, cigarettes, uncomplicated

== ENCOUNTER 2017-03-30 15:40 | Inpatient (IN) | payer OTHER ==
[~2017-03-30] VITALS: Ht 165.1 cm; Wt 180.5 kg
--- NOTE | ~2017-03-30 | PA ---
Unit #: [id number] #: [id number] Patient: BENJI TAVERA [id number] [facility] JEET HARDIN [address] [place] [address] [id number] I MR#: [id number] NAME: BENJI TAVERA ROOM: P131 Age: 26 Sex: M Admission Date: 03/30/2017 : 1990 Date of Assessment: 03/31/2017 Attending Physician: Ruben Krishnamurthy M.D. Admitting Physician: Ruben Krishnamurthy M.D. Primary Care Physician: Primary Care Physician No PSYCHIATRIC ASSESSMENT INFORMANTS The patient reliability, fair; chart reliability, good. CHIEF COMPLAINT "Overdosed on my medication." HISTORY OF PRESENT ILLNESS Mr. Benji Tavera is a 26-year-old male, presented with the above-mentioned complaint. The patient presented to [facility] reporting that he has taken overdose of his medication Effexor 100 pills hoping to . The patient reported hallucination, often seeing shadows movements, later discovered that they are not there. The patient reported he is homicidal against everyone. The patient reported feeling hopeless, worthless, sad, depressed, needing inpatient admission at this time for psychiatric stabilization. PAST PSYCHIATRIC HISTORY Remarkable for history of recent admission at [facility]. [facility] on March 29, 2017. FAMILY HISTORY AND SOCIAL HISTORY The patient reported history of mental illness and substance abuse in uncle. Poor support system. Denied any legal problem. MEDICAL HISTORY Remarkable for morbid obesity. Musculoskeletal; muscle strength and tone, no atrophy or abnormal movement. Gait normal. MEDICATION HISTORY Noncompliant with medication. ALLERGIES No known drug allergies. SUBSTANCE ABUSE HISTORY History of alcohol abuse, opioid abuse, and synthetic drugs. REVIEW OF SYSTEMS HEENT: Eyes, clear. Ears, nose, mouth, and throat; clear. CARDIOVASCULAR: Unremarkable. RESPIRATORY: Unremarkable. GI: Unremarkable. : Unremarkable. Unit #: [id number] #: [id number] Patient: BEJNI TAVERA SKIN: Unremarkable. LYMPH NODE: Unremarkable. NEUROLOGIC: Unremarkable. ENDOCRINE: Unremarkable. HEMATOLOGIC: Unremarkable. ALLERGIC/IMMUNOLOGIC: Unremarkable. MUSCULOSKELETAL: Muscle strength and tone, no atrophy or abnormal movement. Gait normal. Remarkable for obesity. MENTAL STATUS EXAMINATION CONSTITUTIONAL: Measurement of vital signs; temperature 98.4, pulse 53, respirations 16, 98 of oxygen saturation, blood pressure 112/60. GENERAL APPEARANCE: The patient dressed casually. No facial deformity noted. Morbid obesity. MUSCULOSKELETAL: Please see above. PSYCHIATRIC EXAMINATION Description of speech; regular rate, normal volume, normal articulation, coherent. Description of thought process, goal directed. Description of association, intact. Description of abnormal psychotic thinking. The patient denied any hallucination or delusions, but mood lability. Description of the patient's judgment, concerning everyday activity, poor. Social situation, poor. Concerning psychiatric condition, poor. Complete mental status examination; oriented in time, place, and person. Recent and remote memory, fair. Attention span and concentration, fair. Language, able to name object and repeat phrases. Fund of knowledge, aware of current event and passive vocabulary intact. Mood and affect, sad and dysphoric. Insight and judgment, fair to poor. DIAGNOSES Psychiatric: Major depressive disorder, recurrent, severe, F33.2. Secondary diagnosis: Deferred. Medical diagnosis: Morbid obesity. Stressors: Psychosocial stressors. PSYCHIATRIC PLAN AND TREATMENT GOAL AND DISCHARGE PLAN 1. Advised to admit the patient on the inpatient unit. Provide safe, supportive, and structured environment. 2. I advised to obtain all the records from [facility] 3. Precaution for self-harm. 4. Advised no medication at this time, hold as the patient reported and he took overdose. The patient to attend all the programming group therapy, individual therapy, chemical dependency group. 5. Treatment goal; to attain euthymic mood, gain insight into his problem. 6. Discharge plan; plan to stabilize the patient and consider followup in outpatient program. ESTIMATED LENGTH OF STAY 3 to 5 days. Dictated by... Ruben Krishnamurthy M.D. Unit #: [id number] #: [id number] Patient: BENJI TAVERA LUCIA/modl TD: 03/31/2017 19:41 JOB #: [id number] PSYCHIATRIC ASSESSMENT Page 1 of 1 X Ruben Krishnamurthy MD PSYCHIATRIC ASSESSMENT
--- NOTE | ~2017-03-30 | DS ---
Unit #: [id number] #: [id number] Patient: DORA TAVERA [id number] [place] [address] [id number] I MR#: [id number] NAME: DORA TAVERA ROOM: P131 Age: 26 Sex: M Admission Date: 03/30/2017 : 1990 Discharge Date: 04/01/2017 Attending Physician: Ruben Krishnamurthy M.D. Primary Care Physician: Primary Care Physician No DISCHARGE SUMMARY REASON FOR ADMISSION Overdose. DIAGNOSTIC STUDIES Laboratory data, unremarkable. HOSPITAL COURSE The patient was admitted to inpatient unit on March 30 and discharged on 04/01/17. The patient was treated on the inpatient unit with group therapy, individual therapy, medication management. The patient was responsive to treatment, able to contract for safety. The patient was discharged at this time with a plan to follow up in outpatient program. DISCHARGE DIAGNOSES Psychiatric: Sarver I Major depressive disorder, recurrent, severe, F33.2. Sarver II Deferred. Sarver III Morbid obesity. Sarver IV Psychosocial stressors. Sarver V INSTRUCTIONS TO PATIENT The patient is to follow up in outpatient clinic as well as social service coordinator. DISCHARGE MEDICATIONS 1. BuSpar 5 mg three times a day for anxiety 2. Seroquel 100 mg at bedtime for mood stabilization 3. Lexapro 10 mg daily for depression 4. ReVia 5 mg daily for cravings, the patient was given only one week supply. CONDITION AT DISCHARGE The patient is pleasant and cooperative, denied any psychotic symptoms or any suicidal ideation. PROGNOSIS Guarded. DIET AND ACTIVITY As tolerated. Unit #: [id number] #: [id number] Patient: DORA TAVERA Dictated by... Varun Reynoso/violeta TD: 04/06/2017 06:00 JOB #: [id number] DISCHARGE SUMMARY Page 1 of 1 X Ruben Krishnamurthy MD DISCHARGE SUMMARY
--- NOTE | ~2017-03-30 | HP ---
Unit #: [id number] #: [id number] Patient: BENJI TAVERA [id number] [place] [address] [id number] I MR#: [id number] NAME: BENJI TAVERA ROOM: P131 Age: 26 Sex: M Admission Date: 03/30/2017 : 1990 Attending Physician: Ruben Krishnamurthy M.D. Admitting Physician: Ruben Krishnamurthy M.D. Primary Care Physician: Primary Care Physician No HISTORY AND PHYSICAL HISTORY OF PRESENT ILLNESS Benji is a 26 year old admitted to [address] [place] [address] because of his abuse of alcohol. He was just discharged from this facility after treatment for the same. PAST MEDICAL HISTORY Morbid obesity. PAST SURGICAL HISTORY Nothing reported. ALLERGIES Penicillin. SOCIAL HISTORY He denies cigarettes, alcohol and illicit drug use. FAMILY HISTORY Medically noncontributory. REVIEW OF SYSTEMS CONSTITUTIONAL: No fever or chills. HEENT: Denies any sore throat, ear pain or runny nose. CARDIOVASCULAR: Denies chest pain, irregular heart rhythm or palpitations. CHEST: Denies shortness of breath or cough. No hemoptysis. GASTROINTESTINAL: Denies nausea, vomiting, diarrhea or chronic constipation. ENDOCRINE: Denies history of increased thirst or urination. No recent significant weight loss or gain. GENITOURINARY: Denies dysuria, frequency, or hematuria. SKIN: Denies any rashes. HEMATOLOGIC: Denies history of increased bleeding or bruising. MUSCULOSKELETAL: Denies any hot, swollen joints. No generalized muscle pain. NEUROLOGIC: Denies problems with vision or speech. No frequent, severe headaches. No numbness, tingling or weakness in any extremities. Denies loss of bladder or bowel control. CURRENT MEDICATIONS 1. Nicotine patch 21 mg daily. 2. Milk of Magnesia p.r.n. 3. Maalox p.r.n. 4. Tylenol p.r.n. Unit #: [id number] #: [id number] Patient: BENJI TAVERA 5. Seroquel 100 mg q.h.s. 6. ReVia 50 mg daily. 7. Lexapro 100 mg daily. 8. BuSpar 5 mg t.i.d. PHYSICAL EXAMINATION GENERAL: Alert, morbidly obese, in no apparent distress, sitting in a wheelchair. VITAL SIGNS: Blood pressure 112/60, heart rate 80, respirations 16, temperature 98.6. WEIGHT: 398. HEIGHT: 5 feet 5 inches. SKIN: Warm and dry without rash or lesion. HEENT: Normocephalic. TMs not viewed. Oral and nasal passages clear. Conjunctivae clear. PERRLA. EOMs intact. NECK: Supple without lymphadenopathy or thyromegaly. HEART: Regular rate and rhythm without murmur. LUNGS: Clear. ABDOMEN: Soft, nontender. : Not done. EXTREMITIES: No evidence of cyanosis, clubbing or edema. Moves all without focal deficit. NEUROLOGICAL: Unable to complete extended exam. He is confined to a wheelchair because of a fractured ankle. He does move all extremities without focal deficit. 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 Gait not observed. IMPRESSION 1. Psychiatric admission. 2. Fractured right ankle. X-ray report from [facility] is on his chart. RECOMMENDATIONS PSYCHIATRIC: Per psychiatrist. MEDICAL: 1. See no contraindication to participate in facility's activities. 2. Patient can have use of the wheelchair during this admission. He will need to follow up with orthopedics. MEDICAL PROGNOSIS Good. MEDICAL CONDITION Stable. Dictated by... Janeen MarteAMarquita. for Varun Wilks/shayy TD: 03/31/2017 18:07 JOB #: [id number] Unit #: [id number] #: [id number] Patient: BENJI TAVERA HISTORY AND PHYSICAL Page 1 of 1 X Helene Montoya HISTORY AND PHYSICAL
== END 2017-04-01 17:02 | disposition home or self-care (01) | DRG 885 ==
LOC: P1S 20:00
DX: F33.2 Major depressive disorder, recurrent severe without psychotic features (principal); Z68.42 Body mass index [BMI] 45.0-49.9, adult; E66.01 Morbid (severe) obesity due to excess calories; Z88.0 Allergy status to penicillin; S82.891D Other fracture of right lower leg, subsequent encounter for closed fracture with routine healing; X58.XXXD Exposure to other specified factors, subsequent encounter

== ENCOUNTER 2017-04-02 10:00 | Inpatient (IN) | payer OTHER ==
[~2017-04-02] VITALS: Ht 165.1 cm; Wt 127.0 kg
--- NOTE | ~2017-04-02 | PA ---
Unit #: [id number] #: [id number] Patient: BENJI TAVERA [id number] [facility] [address] [place] [address] [id number] I MR#: [id number] NAME: BENJI TAVERA ROOM: P251 Age: 26 Sex: M Admission Date: 04/02/2017 : 1990 Date of Assessment: 04/03/2017 Attending Physician: Sacha Barriga M.D. Admitting Physician: Sacha Barriga M.D. Primary Care Physician: Generic Doctor Not In System PSYCHIATRIC ASSESSMENT DATE OF ASSESSMENT 04/03/2017. INFORMANTS The patient unreliable; OLOP, reliable. CHIEF COMPLAINT "Suicidal". HISTORY OF PRESENT ILLNESS Benji Tavera is a 26-year-old male with multiple admissions to this facility for generally exaggerated and possibly malingered complaints. The patient just left the hospital, but now reports he was suicidal again and his "medications are not working." He was readmitted. PAST PSYCHIATRIC HISTORY Multiple admissions to this facility including one that end the day prior to this admission. FAMILY PSYCHIATRIC HISTORY The patient reported nonspecific system of history of mental illness and substance abuse in his family. SOCIAL HISTORY The patient is single and erratically homeless, in [place], minimal family support. 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 PAST MEDICAL HISTORY Significant for obesity. MEDICATIONS None currently. ALLERGIES No known medication allergies. SUBSTANCE USE HISTORY The patient has a history of abusing alcohol opiates and synthetic marijuana. He reports no recent use. MENTAL STATUS EXAMINATION Benji presented as an obese man, who appeared his stated age. He was irritable, but cooperative with the examination. His speech was Unit #: [id number] #: [id number] Patient: BENJI TAVERA spontaneous and easily understood. His musculoskeletal examination was calm. His mood was irritable with a congruent affect. He was alert and fully oriented. His memory and concentration were intact. There was no evidence of psychosis and he continued to report SI with no specific plan or intent. Insight and judgment fair. Fund of knowledge and abstraction, fair. ASSETS AND LIABILITIES The patient knows local resources and access to the hospital voluntarily. Liabilities include lack of compliance and excessive hospitalizations. ADMITTING DIAGNOSIS AXIS I: Major depression. AXIS II: No diagnosis. AXIS III: Obesity. AXIS IV: AXIS V: PSYCHIATRIC PLAN The patient was admitted and returned to treatment with his previous medications. He will enroll in psychotherapy groups and activities. A physical examination and laboratory studies will be ordered and reviewed. TREATMENT GOALS Resolution of SI, improvement in insight, and improvement in coping skills. DISCHARGE PLANNING Follow up with [facility]. ESTIMATED LENGTH OF STAY 5 days. Dictated by... Sacha Barriga M.D. LUPE/kwasi TD: 04/09/2017 07:18 JOB #: [id number] PSYCHIATRIC ASSESSMENT Page 1 of 1 X Sacha Barriga MD X PSYCHIATRIC ASSESSMENT
--- NOTE | ~2017-04-02 | CO ---
Unit #: [id number] #: [id number] Patient: DORA TAVERA [id number] [facility] [address] [place] [address] [id number] I MR#: [id number] NAME: DORA TAVERA ROOM: P251 Age: 26 Sex: M Admission Date: 04/02/2017 : 1990 Attending Physician: Sacha Barriga M.D. CONSULTATION REPORT ORDERING PROVIDER Dr. Barriga. REASON FOR CONSULTATION Left ankle fracture. SUBJECTIVE Per patient prior to his previous admission on 03/30/2017, he suffered a left ankle fracture at work. He states that he went to [facility], where they diagnosed him with a left ankle fracture. He was told to keep an Manuel wrap around it and not walk on it. He was also supposed to see an orthopedic doctor, but he did not make that appointment. Today, he is requesting an Manuel wrap and pain medication. OBJECTIVE Unfortunately, there is no record of an ankle fracture on this patient. His previous records from [facility] are not immediately available. Per nursing, he has been seen swinging his legs and doing other activities that may not be appropriate for someone that had fractured the ankle. There is a question whether or not he truly fractured it or whether or not he is trying to get medication. Examination shows mild swelling in both ankles. He does report tenderness to palpation and with range of motion. There is no bruising or erythema present. ASSESSMENT Left ankle pain per patient. PLAN Plan is to re-x-ray the ankle. If in fact is fractured, we will get the patient a boot and ibuprofen for pain control. Dictated by... Jodi Delgado A.P.R.N. for Varun Wilks/kwasi TD: 04/04/2017 04:55 JOB #: [id number] Unit #: [id number] #: [id number] Patient: DORA TAVERA CONSULTATION REPORT Page 1 of 1 X JODI DELGADO APRN CONSULTATION REPORT
--- NOTE | ~2017-04-02 | CR20 ---
[facility] A Service of [facility] RADIOLOGY TEXT RESULTS PATIENT: DORA TAVERA LOCATION: P2L P251-1 : [birth year] UNIT #: [id number] AGE: [address]: Sacha Barriga MD SEX: M ORDER DR: [id number] [facility] [address] [facility]. [place], [place] [address] [id number] I MR#: [id number] Acc #: [id number] NAME: DORA TAVERA : 1990 SEX: M STUDY DATE/TIME: 04/03/2017 12:02 UNIT: P2 ROOM: [facility] STUDY DESCRIPTION: CR Ankle Min 3 Views Lt Attending Physician: Sacha Barriga M.D. Ordering Physician: Hussein Lopez M.D. Primary Care Physician: Dane Not Listed MEDICAL IMAGING REPORT This report is preliminary unless electronic signature is present EXAM Left ankle, 3 views, 04/03/2017. HISTORY Left ankle pain and swelling over medial malleolus for 2 days, twisted ankle at work 2 days ago. FINDINGS AP, lateral, and oblique projections of the ankle show satisfactory integrity of the joint mortise with a smooth articular surface. There is no identifiable fracture, dislocation, or radiopaque foreign body. IMPRESSION Normal ankle. Dictated by... Mahesh Lindsey M.D. THIS IS AN ELECTRONICALLY VERIFIED REPORT Mahesh Lindsey M.D. at 04/04/2017 6:37 AM RADHA/hyun TD: 04/03/2017 16:52 JOB #: [id number] MEDICAL IMAGING REPORT Page 1 of 1 COPY
--- NOTE | ~2017-04-02 | HP ---
Unit #: [id number] #: [id number] Patient: DORA TAVERA [id number] [place] [address] [id number] MR#: [id number] NAME: DORA TAVERA ROOM: P251 Age: 26 Sex: M Admission Date: 04/02/2017 : 1990 Attending Physician: Sacha Barriga M.D. Admitting Physician: Sacha Barriga M.D. Primary Care Physician: Generic Doctor Not In System HISTORY AND PHYSICAL HISTORY OF PRESENT ILLNESS Patient is a 26-year-old male admitted to [address] [place] [address] on 04/02/2017 for suicidal ideations. Patient had a recent admission on 03/30/2017 where a full history and physical was reviewed. PAST MEDICAL HISTORY As per admission on 03/30/2017 with the exception of patient now complains of left ankle pain related to claims of a left ankle fracture. He is wheelchair bound at this point. Please see consultation to follow. PAST SURGICAL HISTORY As per admission on 03/30/2017. SOCIAL HISTORY As per H & P on 03/30/2017. FAMILY MEDICAL HISTORY Noncontributory. ALLERGIES As per admission on 03/30/2017. CURRENT MEDICATIONS As per admission on 03/30/2017. REVIEW OF SYSTEMS CONSTITUTIONAL: No fever or chills. HEENT: Denies any sore throat, ear pain or runny nose. CARDIOVASCULAR: Denies chest pain, irregular heart rhythm or palpitations. CHEST: Denies shortness of breath or cough. No hemoptysis. GASTROINTESTINAL: Denies nausea, vomiting, diarrhea or chronic constipation. ENDOCRINE: Denies history of increased thirst or urination. No recent significant weight loss or gain. GENITOURINARY: Denies dysuria, frequency, or hematuria. SKIN: Denies any rashes. HEMATOLOGIC: Denies history of increased bleeding or bruising. MUSCULOSKELETAL: He complains of left ankle pain. NEUROLOGIC: Denies problems with vision or speech. No frequent, severe headaches. No numbness, tingling or weakness in any extremities. Denies loss of bladder or bowel control. PHYSICAL EXAM Unit #: [id number] #: [id number] Patient: DORA TAVERA GENERAL: Patient is sitting in a wheelchair but is nontoxic and is awake, alert and oriented. SKIN: Warm and dry without rash or lesion. HEENT: Normocephalic. TMs not viewed. Oral and nasal passages clear. Conjunctivae clear. PERRLA. EOMs intact. NECK: Supple without lymphadenopathy or thyromegaly. HEART: Regular rate and rhythm without murmur. LUNGS: Clear. ABDOMEN: Soft, nontender. : Not done. MUSCULOSKELETAL: Please note that left ankle has reported pain with range of motion. There is slight edema in bilateral ankles. No bruising or erythema noted. NEUROLOGICAL: Grossly within normal limits. Cranial Nerves: II: Visual joseph are intact. III, IV AND : Extraocular movements are intact. Pupils are equal, round and reactive to light. V: Facial sensation is grossly normal. VII: Facial movements and expression are normal. VIII: Auditory acuity grossly intact. IX, X: Uvula is midline. Phonation is normal. XI: Patient shrugs shoulders and turns head normally. XII: Tongue protrudes in the midline. Sensory and Motor Function: Sensory and motor sensation is grossly normal. Motor: moves all extremities well. IMPRESSION 1. Psychiatric admission. 2. Possible left ankle fracture. RECOMMENDATIONS Psychiatric per psychiatrist. MEDICAL: No contraindication to participate in facility activities. MEDICAL PROGNOSIS Good. MEDICAL CONDITION Stable. Dictated by... Thania Talavera/olga TD: 04/04/2017 02:17 JOB #: [id number] Unit #: [id number] #: [id number] Patient: DORA TAVERA HISTORY AND PHYSICAL Page 1 of 1 X BRADEN GATICA APRN HISTORY AND PHYSICAL
--- NOTE | ~2017-04-02 | CO ---
Unit #: [id number] #: [id number] Patient: DORA TAVERA [id number] [place] [address] [id number] MR#: [id number] NAME: DORA TAVERA ROOM: P251 Age: 26 Sex: M Admission Date: 04/02/2017 : 1990 Attending Physician: Sacha Barriga M.D. Primary Care Physician: Generic Doctor Not In System Consultation Date: 04/04/2017 CONSULTATION REPORT Ordering provider is Dr. Barriga. REASON FOR CONSULTATION To follow up on ankle x-ray. The patient was seen on 04/03/2017 with reports that he had fractured his left ankle. He reports that this was done at [facility]; however, no records were found. At the time, he was requesting pain medication and Manuel wrap. We did repeat an x-ray of his left ankle, which was found to be completely normal. There were no fractures present. At this time, I will discontinue his wheelchair and his ibuprofen. I do not feel it necessary for him to have any kind of Manuel wrap or boot for the area. Discussed results with the patient. Dictated by... Thania Talavera/kwasi TD: 04/05/2017 13:49 JOB #: [id number] CONSULTATION REPORT Page 1 of 1 X BRADEN GATICA APRN CONSULTATION REPORT
== END 2017-04-04 13:00 | disposition home or self-care (01) | DRG 880 ==
LOC: P2L 14:43
DX: R45.851 Suicidal ideations (principal); M25.572 Pain in left ankle and joints of left foot
CPT/HCPCS: 73610